=== PATIENT | female | born 1955 | race Caucasian/White ===

== ENCOUNTER 2019-12-05 08:56 | Inpatient (IN) | payer OTHER ==
[~2019-12-05] VITALS: Ht 170.2 cm; Wt 120.7 kg
[~2019-12-05 08:56] MED LIST: ACID CONTROL20 MG PO; AMBIEN 10 MG TA10 MG PO; APIDRA SUBQ; ASPIRIN EC325 M1 PO; BENADRYL ALLERG25 MG PO; CALCIUM; CALCIUM OYSTER500 MG PO; CALCIUM PO; CARISOPRODOL 3350 MG PO; CIPROFLOXACIN500 M1 PO; CLARITIN10 MG PO; CLONAZEPAM 1 MG1 M1 PO; DEPAKOTE ER500 MG PO; DEPAKOTE500 MG PO; GLIPIZIDE ER5 MG PO; GLUCOTROL5 MG PO; HYDROCODON-ACE1 EAC1 PO; IBUPROFEN 800800 M1 PO; JANUVIA100 MG PO; KEPPRA 500 MG500 M1 PO; LANTUS; LANTUSSOLASTAR SUBQ; LOPRESSOR 50 MG50 M1 PO; NALBUPHINE PO; PHENERGAN 25 MG25 M1 PO; SIMVASTATIN20 MG PO; SYNTHROID75 MCG PO; VICODIN 5-5001 EACH PO; VICOPROFEN 2001 EACH PO; VITAMIN D-32000 UNIT PO
[2019-12-05] MEDS ORDERED: NEURONTIN 300M300 M2 PO (09:16)
[2019-12-05] MEDS ORDERED: LEVOTHYROXINE125 MCG PO (09:16)
[2019-12-05] MEDS ORDERED: ELIQUIS5 MG PO (09:18)
[2019-12-05] MEDS ORDERED: PROAIR RESPICL90 MCG INH (09:19)
[2019-12-05] MEDS ORDERED: LIPITOR 20 MG T20 M1 PO (09:20)
[2019-12-05] MEDS ORDERED: DULOXETINE HCL60 MG PO (09:22)
[2019-12-05] MEDS ORDERED: LOPERAMIDE 2 MG2 M1 PO (09:23)
[2019-12-05] MEDS ORDERED: HYDROXYZINE HCL25 M2 PO (09:23)
[2019-12-05 10:06] LABS: URINE BILIRUBIN NEGATIVE (Negative); URINE BLOOD TRACE (Negative); URINE CLARITY CLEAR; URINE COLOR YELLOW; URINE GLUCOSE-RANDOM* 3+ (Negative); URINE KETONES NEGATIVE (Negative); URINE LEUKOCYTES-REFLEX 1+ (Negative); URINE NITRITE-REFLEX NEGATIVE (Negative); URINE PROTEIN (DIPSTICK) NEGATIVE (Negative); URINE SPECIFIC GRAVITY 1.015 (1.005-1.035); URINE UROBILINOGEN 0.2 E.U./dl (0.2-1.0)
[2019-12-05 10:10] LABS: ABSOLUTE NEUTROPHILS 5.8 thou/uL (1.4-8.2); BASOPHILS 0.4 % (0.0-2.0); EOSINOPHILS 0.7 % (0.0-3.0); HEMATOCRIT 40.2 % (37.0-47.0); HEMOGLOBIN 12.9 gm/dL (12.0-15.0); LYMPHOCYTES 16.9 % (24.0-44.0); MCH 24.8 pg (26.0-34.0); MCV 77.4 fL (80.0-100.0); MONOCYTES 8.5 % (1.0-8.0); PLATELET COUNT 204 thou/uL (150-400); POLYS 73.5 % (36.0-66.0); RBC 5.19 mil/uL (4.20-5.00); RDW 18.5 % (10.5-14.5); WBC 7.9 thou/uL (4.0-11.0)
[2019-12-05 10:17] LABS: CASTS None Seen /LPF (None Seen); SQUAMOUS >10 Many /LPF (0-3)
[2019-12-05 10:18] LABS: BACTERIA-REFLEX 1-9 Few /HPF (None Seen); CRYSTALS None Seen /LPF (None Seen); URINE RBC 0-2 Rare /HPF (0-2); WBC CLUMPS Few (None Seen)
[2019-12-05 10:25] LABS: CALCIUM 9.4 mg/dL (8.5-10.1); CREATININE 0.9 mg/dL (0.6-1.0); POTASSIUM 4.4 mmol/L (3.5-5.1)
[2019-12-05 10:31] LABS: ALBUMIN 3.4 g/dL (3.4-5.0); TOTAL BILIRUBIN 0.4 mg/dL (0.2-1.0); TOTAL PROTEIN 7.8 g/dL (6.4-8.2)
[2019-12-05] MEDS ORDERED: VALTREX1000 MG PO (11:22)
[2019-12-05] MEDS ORDERED: NORCO 5-325 TA1 EAC2 PO (11:22)
[2019-12-05 11:26] LABS: ANISOCYTOSIS 2+; HYPOCHROMASIA 2+; MICROCYTES 2+
--- NOTE | 2019-12-05 13:20 | NUR ---
DR ADAMSON AT BEDSIDE
--- NOTE | 2019-12-05 14:56 | NUR ---
SPOKE TO SRINI, INFORMED OF PT STATUS
[2019-12-05 15:36] VITALS: BP 138/76
[2019-12-05 16:03] VITALS: BP 138/76
[2019-12-05 17:00] VITALS: BP 148/58
[2019-12-05] MEDS ORDERED: FLONASE 0.05%50 MCG NASAL (17:27)
[2019-12-05 20:00] VITALS: BP 152/84
--- NOTE | 2019-12-06 01:05 | NUR ---
PATIENT ALERT AND ORIENTED X4. UP ADLIB IN ROOM. NS INFUSING AT 100/HR, HOWEVER, DURING REPORT AM NURSE STATED FLUIDS RUNNING AT 150/HR. THIS NURSE NOTED TIME OF BOTH ORDERS AND FLUID SHOULD BE RUNNING AT 150/HR PER DR. ADAMSON. NS AT 100/HR DISCONTINUED. PATIENT UP AND DOWN DURING THE NIGHT STATES THAT SHE DOES NOT SLEEP WELL. REQUESTED AND RECEIVED ICE PACK FOR HER HEAD (HEADACHE). MEDICATED WITH MORPHINE X1 AT TIME OF NOTE AND REQUESTING MORPHINE BEFORE PRN FOUR HOURS. WILL MONITOR.
[2019-12-06 04:45] VITALS: BP 143/66
[2019-12-06 05:45] LABS: HEMATOCRIT 38.5 % (37.0-47.0); HEMOGLOBIN 12.4 gm/dL (12.0-15.0); MCHC 32.1 g/dL (28.0-37.0); MCV 77.7 fL (80.0-100.0); RBC 4.96 mil/uL (4.20-5.00); WBC 7.3 thou/uL (4.0-11.0)
--- NOTE | 2019-12-06 06:07 | NUR ---
PATIENT STATED THAT SHE HAD SOME NAUSEA AND WAS GIVEN ZOFRAN IVP. NO EMESIS. C/O PAIN TO HER LOWER LEFT QUAD OF HER ABDOMEN. MEDICATED X2 DURING THE NIGHT. BS MONITORED PER ORDER. RESTLESS THIS AM. WILL MONITOR.
[2019-12-06 07:25] VITALS: BP 122/70
[2019-12-06 11:23] VITALS: BP 148/75
[2019-12-06 16:24] VITALS: BP 146/77
--- NOTE | 2019-12-06 19:14 | NUR ---
PT CARE ASSUMED AT 0700, PT ALERT AND ORIENTED X4, DENIES CHEST PAIN, NAUSEA AND VOMITTING. PT IS ON 2L OF OXYGEN, NO DISTRESS NOTED. PT COMPLAINS OF ABDOMINAL PAIN, PAIN MED GIVEN PER PRN. PT UP TO COMMODE BY HER SELF. PT IS OFF ISOLATION. WILL CONTINUE TO MONITOR.
[2019-12-06 19:20] VITALS: BP 145/74
[2019-12-07 05:15] VITALS: BP 174/93
[2019-12-07 06:24] LABS: HEMATOCRIT 37.8 % (37.0-47.0); HEMOGLOBIN 12.1 gm/dL (12.0-15.0); MCH 25.1 pg (26.0-34.0); MCHC 32.1 g/dL (28.0-37.0); MCV 78.2 fL (80.0-100.0); RBC 4.83 mil/uL (4.20-5.00); RDW 18.1 % (10.5-14.5); WBC 7.6 thou/uL (4.0-11.0)
[2019-12-07 06:48] LABS: CALCIUM 8.8 mg/dL (8.5-10.1); CREATININE 0.7 mg/dL (0.6-1.0); POTASSIUM 4.1 mmol/L (3.5-5.1)
[2019-12-07 08:22] VITALS: BP 160/88
[2019-12-07 11:45] VITALS: BP 147/79
--- NOTE | 2019-12-07 13:22 | NUR ---
PT CARE ASSUMED AT 0700, PT ALERT AND ORIENTED X4, PT DENIES CHEST PAIN. CCOMPLAINS OF [place] GIVEN. OXYGEN D/C, PT O2 SAT WNL, NO SIGNS OF DISTRESS NOTED. TELEMETRY D/C PER DR. ADAMSON, TRANSFER TO MED/SURG UNIT WHEN A BED AVAILABLE.
--- NOTE | 2019-12-07 17:38 | NUR ---
INITIAL ASSESSMENT: SW reviewed chart and spoke with nursing. Pt was admitted from home due to pancreatitis. Pt was placed in Enhanced Isolation to r/o COVID-19. Pt's test is negative and will transfer to med/surg when a bed is available. SW spoke with pt via phone. Introduced role of SW. Pt appears to be alert/orientated. Pt states she lives at home with her . Pt denies using any DME at home. Pt not wanting to answer any further questions, and states that she has been asking to eat all day. SW contacted pt's nurse, who states pt is on a clear liquid diet and they are slowing advancing her diet. Per chart, pt's PCP is Dr. Marta Jerry. No discharge needs identified at this time. [facility] is following to assist as needed with discharge planning.
[2019-12-07 17:41] VITALS: BP 136/78
--- NOTE | 2019-12-07 18:18 | NUR ---
Assumed pt care at 6:25 pm transfer from [facility]. Dinner and all blood sugar checks done in [facility]. PLaced pt comfortably in bed, IVF on going. POC followed with no signs or verbalizations of distress noted.
--- NOTE | 2019-12-07 18:49 | NUR ---
1750 BED [facility] FOR PT TO TRANSFER TO [facility], REPORT GIVEN TO JAIME DUVAL. PT BELONGING PACKED AND SENT DOWN WITH PT.
[2019-12-07 20:15] VITALS: BP 153/58
[2019-12-08 05:50] LABS: CALCIUM 8.7 mg/dL (8.5-10.1); CREATININE 0.7 mg/dL (0.6-1.0); POTASSIUM 4.1 mmol/L (3.5-5.1)
[2019-12-08 06:07] LABS: HEMATOCRIT 36.9 % (37.0-47.0); HEMOGLOBIN 11.8 gm/dL (12.0-15.0); MCHC 31.9 g/dL (28.0-37.0); MCV 78.3 fL (80.0-100.0); RBC 4.72 mil/uL (4.20-5.00); RDW 17.8 % (10.5-14.5); WBC 6.3 thou/uL (4.0-11.0)
[2019-12-08 09:05] VITALS: BP 172/98
--- NOTE | 2019-12-08 09:33 | NUR ---
progress pt up with [facility] uses walker at home d/t weak and painful knees. voiding qs, had a small bm and miralax given to promote bm. pain controlled with morphine tolerating diet.
[2019-12-08 11:00] VITALS: BP 172/98
--- NOTE | 2019-12-08 12:59 | NUR ---
Assess due to class III obesity with BMI of 41.7 and dx of acute pancreatitis. Had been npo/clears x 3 days for bowel rest. Diet newly advanced for lunch and pt excited to be eating and reported no pain. Offered nutrition education however pt declined at this time but aware she can contact RD for questions. Low nutrition risk
--- NOTE | 2019-12-08 19:49 | NUR ---
ASSUMED PT CARE AT 0700. PT ALERT X ORIENTED X 4. ON ROOM AIR. PAIN CONTROLLED BY MORPHINE. LEFT ARM IV WITH NS RUNNING @150. TRACE EDEMA ON FEET. ACHS. PT HAD CONCERNS ABOUT HER MEDS AND ANXIOUS TO GO HOME. HAD 2 BM TODAY. PATIENT'S WAS WITH HER FROM NOON TILL EVENING.
[2019-12-08 20:45] VITALS: BP 151/86
--- NOTE | 2019-12-09 05:04 | NUR ---
ASSUMED CARE OF PT AT 1900HRS. PT AOX4 AND LETS NEEDS BE KNOWN. PT HAS STEADY GAIT AND CALLS APPROPIATELY. PT REPORTED PAIN AND WAS TREATED WITH PRN PAIN MEDS. PT DENIED NAUSEA OR SOA. PT WAS ABLE TO GET COMFORTABLE AND SLEEP PART OF THE SHIFT. NO S/S OF ACUTE DISTRESS. WILL CONTINUE TO MONITOR.
[2019-12-09 05:07] LABS: IgG 853 mg/dL (586-1602)
[2019-12-09 05:29] VITALS: BP 147/91
[2019-12-09 05:54] LABS: HEMATOCRIT 35.9 % (37.0-47.0); HEMOGLOBIN 11.5 gm/dL (12.0-15.0); MCH 24.8 pg (26.0-34.0); MCHC 31.9 g/dL (28.0-37.0); MCV 77.9 fL (80.0-100.0); RBC 4.61 mil/uL (4.20-5.00); WBC 5.9 thou/uL (4.0-11.0)
[2019-12-09 06:02] LABS: CREATININE 0.7 mg/dL (0.6-1.0); POTASSIUM 3.9 mmol/L (3.5-5.1)
[2019-12-09 08:25] VITALS: BP 172/95
[2019-12-09] MEDS ORDERED: TRAMADOL 50 MG50 MG PO (10:20)
--- NOTE | 2019-12-09 10:35 | NUR ---
RECEIVED PT'S CARE AROUND 0735; PT. ON BED; ALERT; DURING ASSESSMENT AOX4; C/O EPIC GASTRIC PAIN; EDUCATED ABOUT PAIN MANAGEMENT; REQUESTED [facility] TO HELP HER BURP; ABLE TO BURP; AM MEDICATIONS GIVEN; ST. WANTS TO GO HOME; ST. FEELING SOME CONSTIPATION; REFUSED PRN MEDICATION; ST. NOT HAVING ANYTHING DURING THE LAST DAYS; PER RECORD & REPORT PT. HAD MEDICATION ON 12/08/2019; PT. NOTIFIED; ST. NOT REMEMBERING; OFFER MIRALAX; ST. "NOT RIGHT NOW"; EDUCATED ABOUT D/C PROCESS; ST. UNDERSTANDING; D/C ORDERS ON PLACED; PT. NOTIFIED; WORKING ON D/C PAPERS; ASSESSMENT CHARGED; FOLLOWED POC;
[2019-12-09 10:41] VITALS: BP 172/95
== END 2019-12-09 11:00 | disposition home or self-care (01) | DRG 439 ==
LOC: ER 08:56 → EROBS 12:27 → 3W 12:27 → 4W 12-07 18:02
PROVIDERS: Emergency Medicine; Nurse Practitioner; ADMIT Hospitalist; ATTEND Hospitalist
DX: K85.90 Acute pancreatitis without necrosis or infection, unspecified (principal); E87.1 Hypo-osmolality and hyponatremia; L03.311 Cellulitis of abdominal wall; Z68.41 Body mass index [BMI] 40.0-44.9, adult; I48.91 Unspecified atrial fibrillation; Z20.828 Contact with and (suspected) exposure to other viral communicable diseases; E03.9 Hypothyroidism, unspecified; G43.909 Migraine, unspecified, not intractable, without status migrainosus; E66.9 Obesity, unspecified; K59.09 Other constipation; T40.2X5A Adverse effect of other opioids, initial encounter; E11.9 Type 2 diabetes mellitus without complications; E78.5 Hyperlipidemia, unspecified; I10 Essential (primary) hypertension; G40.909 Epilepsy, unspecified, not intractable, without status epilepticus; G89.29 Other chronic pain; Z80.0 Family history of malignant neoplasm of digestive organs; Z79.82 Long term (current) use of aspirin; Z90.49 Acquired absence of other specified parts of digestive tract; Z88.8 Allergy status to other drugs, medicaments and biological substances; Z79.899 Other long term (current) drug therapy; Y92.89 Other specified places as the place of occurrence of the external cause
CPT/HCPCS: 10040; 10045; 10879